=== PATIENT | male | born 1950 | race Caucasian/White ===

== ENCOUNTER → 2018-06-15 | Outpatient (CLI) | payer OTHER ==
[~2018-06-15] MED LIST: IOHEXOL-350 50ML VIAL IV ONE; IOHEXOL-350 75 ML VIAL IV ONE
== END | disposition home or self-care (01) ==
LOC: RAH 08:32 → EDUNIT# 09:00
PROVIDERS: ATTEND Internal Medicine Cardiovascular Disease
DX: I70.298 Other atherosclerosis of native arteries of extremities, other extremity (principal); I77.1 Stricture of artery
CPT/HCPCS: 75635; Q9967 ×2

== ENCOUNTER 2018-08-30 06:46 | Day surgery (SDC) | payer OTHER ==
[2018-08-26 10:35] VITALS: BP 173/70
[2018-08-26 11:15] LABS: BASOPHILS % (AUTO) 0.5 % (0.0-5.0); EOSINOPHILS % (AUTO) 2.8 % (0.0-8.0); HEMATOCRIT 46.9 % (42-54); LYMPHOCYTES % (AUTO) 24.6 % (21.0-51.0); MEAN CORPUSCULAR HEMOGLOBIN 34.1 pg (27.0-33.0); MEAN CORPUSCULAR HGB CONC 34.3 g/dL (32.0-36.0); MEAN CORPUSCULAR VOLUME 99.5 fL (79-99); MONOCYTES % (AUTO) 9.9 % (3.0-13.0); NEUTROPHILS % (AUTO) 62.2 % (40.0-77.0); PLATELET COUNT (AUTO) 221 K/uL (130-400); RED BLOOD CELL COUNT(AUTO) 4.72 MIL/uL (4.50-6.20); RED CELL DISTRIBUTION WIDTH 12.9 % (11.0-15.5); WHITE BLOOD COUNT (AUTO) 7.3 K/uL (4.8-10.8)
[2018-08-26 11:18] LABS: CREATININE 0.8 mg/dL (0.5-1.5); POTASSIUM 3.9 mmol/L (3.5-5.1)
[2018-08-26 11:55] LABS: INR 0.88 (0.85-1.15); PARTIAL THROMBOPLASTIN TIME 30.3 SEC (26.3-35.5); PROTHROMBIN TIME 9.3 SEC (9.6-11.6)
--- NOTE | 2018-08-29 14:06 | NUR ---
Notified Mychal HUNT that UA was not collected due to patient leaving facility, per Mychal kerr to collect plain UA day of procedure.
[2018-08-30] VITALS (18 sets, daily range): BP systolic 130–173; BP diastolic 61–74
[~2018-08-30] VITALS: Ht 172.7 cm; Wt 63.5 kg
[~2018-08-30 06:46] MED LIST changes: +AEC81 PO; +AREDS-2 PO; +CETI10TA57 PO; -IOHEXOL-350 50ML VIAL IV ONE; -IOHEXOL-350 75 ML VIAL IV ONE
[2018-08-30] MEDS ORDERED: SODIUM CHLORIDE 0.9% 1000ML 1,000 ML IV ONE (07:23)
[2018-08-30 07:27] LABS: APPEARANCE,URINE Clear (CLEAR); BILIRUBIN,URINE Small (NEGATIVE); COLOR,URINE Dark Yellow (YELLOW); GLUCOSE, URINE (UA) Negative (NEGATIVE); KETONES,URINE Negative (NEGATIVE); LEUKOCYTE ESTERASE ,URINE Moderate (NEGATIVE); NITRATE,URINE Negative (NEGATIVE); OCCULT BLOOD,URINE Negative (NEGATIVE); PH,URINE 5.5 (5.0-8.0); PROTEIN,URINE Negative (NEGATIVE)
[2018-08-30 07:50] LABS: BACTERIA,URINE Moderate /HPF (None Seen); RBC,URINE 0-1 /HPF (0-1); SQUAMOUS EPITHELIAL CELL,UR 0-2 /HPF (0-2); WBC,URINE 26-50 /HPF (0-1)
[2018-08-30] MEDS ORDERED: SODIUM BICARB 50MEQ 50ML VIAL ONE (08:36)
[2018-08-30] MEDS ORDERED: LIDOCAINE HCL 1% 20 ML VIAL ONE (08:36)
[2018-08-30] MEDS ORDERED: NITROGLYCERIN 5 MG/ML 10 ML VIAL IV ONE (08:37)
[2018-08-30] MEDS ORDERED: IODIXANOL 320 MG/ML 100 ML VIAL ONE ×2 (08:37→10:19)
[2018-08-30] MEDS ORDERED: HEPARIN SODIUM 1000UNIT/ML 10ML VIAL ONE (08:37)
[2018-08-30] MEDS ORDERED: LABETALOL 20 MG/4 ML DISP.SYRIN IV ONE (09:44)
[2018-08-30] MEDS ORDERED: LEVOFLOXACIN 500 MG/D5W 100 ML 100 ML IV SCH (09:45)
[2018-08-30] MEDS ORDERED: CLOPIDOGREL BISULFATE 300 MG TAB ONE (10:40)
[2018-08-30] MEDS ORDERED: SODIUM CHLORIDE 0.9% 1000ML 1,000 ML IV SCH (10:57)
[2018-08-30] MEDS ORDERED: ACETAMINOPHEN-CODEINE 300/30MG TAB PO PRN (11:00)
[2018-08-30 12:20] LABS: CHOLESTEROL 180 mg/dL (<200); HDL CHOLESTEROL 103 mg/dL (29-71); LDL DIRECT 78 mg/dL (0-99); TRIGLYCERIDES 30 mg/dL (30-200)
[2018-08-30] MEDS ORDERED: ATROPINE SULFATE 0.1 MG/ML 10 ML SYG IVP ONE (13:56)
[2018-08-30] MEDS ORDERED: SODIUM BICARB 8.4% 50ML SYRINGE ONE (15:12)
== END 2018-08-30 18:01 | disposition home or self-care (01) ==
LOC: DAH 06:46
PROVIDERS: ATTEND Internal Medicine Cardiovascular Disease
DX: I70.213 Atherosclerosis of native arteries of extremities with intermittent claudication, bilateral legs (principal); I70.1 Atherosclerosis of renal artery; Z79.01 Long term (current) use of anticoagulants; Z82.49 Family history of ischemic heart disease and other diseases of the circulatory system; Z79.899 Other long term (current) drug therapy; Z98.890 Other specified postprocedural states
CPT/HCPCS: 36415 ×2; 37221; 37223 ×2; 71045; 75625; 75716; 80048; 80061; 81001; 85025; 85347 ×4; 85610; 85730; 93005; A4606; C1769 ×2; C1876 ×4; C1893; C1894 ×2; J1644 ×2; J1956; J3490 ×3; J7030; Q9967 ×2; 37222; J0461